=== PATIENT | female | born 1995 | race Caucasian/White ===

== ENCOUNTER 2017-08-31 17:34 | Emergency (ER) | payer OTHER ==
[~2017-08-31] VITALS: Ht 162.6 cm; Wt 73.0 kg
[~2017-08-31 17:34] MED LIST: BACTRIM,SEPT1 TABLET PO; ELIMITE 5% CREA60 GM TP; NAPROSYN500 MG PO
[2017-08-31] MEDS ORDERED: VALIUM5 MG PO (17:54)
[2017-08-31] MEDS ORDERED: ULTRAM50 MG PO (17:54)
[2017-08-31] MEDS ORDERED: PREDNISONE10 MG PO (17:54)
[2017-08-31 18:30] VITALS: BP 136/87
== END 2017-08-31 18:31 | disposition home or self-care (01) ==
LOC: EME 17:34
DX: M54.5 Low back pain (principal); G89.29 Other chronic pain
CPT/HCPCS: 99281; 99283; J1100

== ENCOUNTER 2017-09-06 05:47 | Emergency (ER) | payer OTHER ==
[~2017-09-06] VITALS: Ht 162.6 cm; Wt 72.7 kg
[~2017-09-06 05:47] MED LIST changes: +PREDNISONE10 MG PO; +ULTRAM50 MG PO; +VALIUM5 MG PO
[2017-09-06] MEDS ORDERED: PERCOCET 5/31 TABLET PO (08:20)
[2017-09-06 08:46] VITALS: BP 125/80
== END 2017-09-06 08:47 | disposition home or self-care (01) ==
LOC: EME 05:47
DX: M54.5 Low back pain (principal); G89.29 Other chronic pain; F17.200 Nicotine dependence, unspecified, uncomplicated
CPT/HCPCS: 99281; 99283; J1885